=== PATIENT | male | born 1930 | race African-American/Black ===

== ENCOUNTER 2017-11-17 18:45 | Emergency (ER) | payer MEDICARE ==
[2017-11-17 19:48] LABS: #Eosinphils 0.2 thou/uL (0.0-0.7); #Lymphocytes 1.6 thou/uL (1.20-3.40); #Monocytes 0.5 thou/uL (0.11-0.59); #Neutrophils 1.8 thou/uL (1.40-6.50); %Basophils 0.7 % (0.0-1.0); %Lymphocytes 39.3 % (21.0-51.0); %Monocytes 11.6 % (0.0-10.0); %Neutrophils 43.3 % (42.0-75.0); Hemoglobin 10.8 g/dL (14.0-18.0); Mean Corpuscular HGB CONC 32.6 g/dL (32.0-36.0); Mean Corpuscular Hemoglobin 29.7 pg (27.0-31.0); Mean Corpuscular Volume 91.1 fl (80.0-94.0); Mean Platelet Volume 7.1 fL (7.4-10.4); Platelet Count 254 thou/uL (130-400); RBC Distribution Width 12.7 % (11.5-14.5); Red Blood Cell (RBC) Count 3.64 mill/uL (4.70-6.10); White Blood Cell (WBC) Count 4.1 thou/uL (4.8-10.8)
[2017-11-17 20:11] LABS: ALT (SGPT) 7 U/L (8-55); AST (SGOT) 14 U/L (5-34); Alkaline Phosphatase 47 U/L (40-150); Anion Gap 13 mmol/L (10-20); BUN (Urea Nitrogen) 19 mg/dL (8.4-25.7); Bilirubin, Total 0.3 mg/dL (0.2-1.2); Calc. Creatinine Clearance 0 mL/min (70-130); Carbon Dioxide 25 mmol/L (23-31); Chloride 104 mmol/L (98-107); Estimated GFR-MDRD 45; Globulin 3.3 g/dL (2.4-3.5); Glucose 361 mg/dL (83-110); Potassium 4.7 mmol/L (3.5-5.1); Protein, Total 7.3 g/dL (5.8-8.1); Sodium 137 mmol/L (136-145)
[2017-11-17 21:55] LABS: Bilirubin Negative (Negative); Blood, Urine Negative (Negative); Clarity CLEAR (Clear); Glucose, Urine (Dipstick) >=1000 mg/dL (Negative); Leukocyte Negative (Negative); Nitrite Negative (Negative); Protein, Urine (Dipstick) Negative (Neg-Trace); Specific Gravity, Urine 1.024 (1.002-1.036); Urobilinogen 0.2 mg/dL (0.2-1.0); pH, Urine 5.5 (5.0-9.0)
== END 2017-11-17 22:24 | disposition home or self-care (01) ==
LOC: ERS 18:45
DX: E11.65 Type 2 diabetes mellitus with hyperglycemia (principal); E78.5 Hyperlipidemia, unspecified; I10 Essential (primary) hypertension; Z79.4 Long term (current) use of insulin; Z79.899 Other long term (current) drug therapy
CPT/HCPCS: 36415; 36416; 80053; 81003; 85025; 96360

== ENCOUNTER 2018-09-16 05:05 | Inpatient (IN) | payer MEDICARE ==
[2018-09-16 05:38] LABS: #Eosinphils 0.2 thou/uL (0.0-0.7); #Lymphocytes 1.8 thou/uL (1.20-3.40); #Monocytes 0.6 thou/uL (0.11-0.59); %Basophils 0.1 % (0.0-1.0); %Eosinophils 3.8 % (0.0-10.0); %Lymphocytes 31.8 % (21.0-51.0); %Neutrophils 53.3 % (42.0-75.0); Hemoglobin 9.6 g/dL (14.0-18.0); Mean Corpuscular HGB CONC 32.1 g/dL (32.0-36.0); Mean Corpuscular Hemoglobin 27.1 pg (27.0-31.0); Mean Corpuscular Volume 84.6 fL (78.0-98.0); Mean Platelet Volume 6.3 fL (7.4-10.4); Platelet Count 403 thou/uL (130-400); RBC Distribution Width 12.8 % (11.5-14.5); Red Blood Cell (RBC) Count 3.54 mill/uL (4.70-6.10); White Blood Cell (WBC) Count 5.7 thou/uL (4.8-10.8)
[2018-09-16 05:41] LABS: INR-International Normal Ratio 1.1; Prothrombin Time 13.8 SEC (12.0-14.7)
[2018-09-16 05:42] LABS: PTT 40.5 SEC (22.9-36.1)
[2018-09-16] MEDS ORDERED: Aspirin 300 MG Suppository ONE (05:48)
[2018-09-16 06:02] LABS: ALT (SGPT) Less than 7 U/L (8-55); AST (SGOT) 15 U/L (5-34); Albumin 3.8 g/dL (3.4-4.8); Alkaline Phosphatase 45 U/L (40-150); Anion Gap 12 mmol/L (10-20); BUN (Urea Nitrogen) 16 mg/dL (8.4-25.7); Bilirubin, Total 0.4 mg/dL (0.2-1.2); CK (CPK) 110 U/L (30-200); Calc. Creatinine Clearance 0 mL/min (70-130); Calcium 8.8 mg/dL (7.8-10.44); Carbon Dioxide 24 mmol/L (23-31); Chloride 93 mmol/L (98-107); Estimated GFR-MDRD 55; Globulin 2.8 g/dL (2.4-3.5); Glucose 138 mg/dL (83-110); Lipase 14 U/L (8-78); Magnesium 1.7 mg/dL (1.6-2.6); Potassium 4.1 mmol/L (3.5-5.1); Protein, Total 6.6 g/dL (5.8-8.1); Sodium 125 mmol/L (136-145)
[2018-09-16 06:06] LABS: Troponin I Less than 0.010 ng/mL (< 0.028)
--- NOTE | 2018-09-16 08:11 | CT ---
PRELIMINARY REPORT/[facility]/EMERGENTY AFTER-HOURS PROCEDURE Addendum created by Blake House MD on 09/16/2018 5:35 AM Central Time ([place] & [place]) The above was read and discussed at approximately 5:35 AM CDT on09/16/2018 with the attending physician , TOSHIA Mckenzie. Initial Report created on 09/16/2018 5:31 AM Central Time ([place] & [place]) CT Head Without Intravenous Contrast EXAM DATE/TIME: 09/16/2018 5:24 AM CLINICAL HISTORY: 87 years old, male; Signs and symptoms; Altered mental status/memory loss and visual disturbance and weakness, facial; Patient HX: AMS TECHNIQUE: Axial computed tomography images of the head/brain without intravenous contrast. COMPARISON: No relevant prior studies available. FINDINGS: Brain: -hypodensity is seen in the periventricular cerebral white matter. This change is nonspecific but is most likely secondary to chronic ischemia within microvascular distributions. There are no oth er intra or extra-axial masses, lesions or collections. The santiago white matter distinction is maintain ed throughout the brain. There is no radiographic evidence of intracranial hemorrhage. Encephalomalac ia right cerebellum Ventricles: The ventricles are enlarged on the basis of mild diffuse cerebral volume loss. Bones/joints: Normal. No acute fracture. Sinuses: Normal as visualized. No acute sinusitis. Mastoid air cells: Normal as visualized. No mastoid effusion. Soft tissues: Normal. IMPRESSION: No radiographic evidence of acute intracranial pathology. Thank you for allowing us to participate in the care of your patient. Dictated and Authenticated by: Blake House MD 09/16/2018 5:31 AM Central Time ([place] & [place]) FINAL REPORT EMERGENT AFTER HOURS CT OF YARI PAREDESFORMED WITHOUT CONTRAST ENHANCEMENT: HISTORY: Altered mental status, memory loss, and visual disturbance. COMPARISON: A 04/29/11 study. FINDINGS: The ventricular and cisternal systems show some generalized age-appropriate atrophy. There are no si gns of intracerebral hemorrhage or extraaxial fluid collections. The mastoid air cells and visualize d sinuses are clear. IMPRESSION: 1. No acute intracranial abnormalities. Stable sellar/suprasellar mass. 2. This report is in agreement with the temporary report issued by [facility]. POS: [facility]
--- NOTE | 2018-09-16 08:47 | CT ---
PRELIMINARY REPORT/[facility]/EMERGENTY AFTER-HOURS PROCEDURE Addendum created by Blake House MD on 09/16/2018 6:10 AM Central Time ([place] & [place]) The above was read and discussed at approximately 6:10 AM CDT on09/16/2018 with the attending physician , TOSHIA Mckenzie. Initial Report created on 09/16/2018 5:58 AM Central Time ([place] & [place]) CT angiogram of the brain. 09/16/2018 5:32 AM Indication: Signs and symptoms; Visual disturbance and weakness; Patient HX: AMS Technique: Axial images were obtained during the dynamic injection of contrast material. Projected im ages were then obtained and submitted for interpretation. Findings: The axial source images were carefully reviewed and interpreted in conjunction with the projected corbin ges. -right petrous carotid, cavernous carotid, supraclinoid carotid normal Right M1 and M2 segments normal Right A1 and A2 segments mild narrowing of the distal right A1 segment. Narrowing of the proximal A2 segment. Distal A2 segment is occluded. -left petrous and cavernous carotids and supraclinoid carotid normal -Left M1 and M2 segments normal -Left A1 and A2 segments normal Right and left posterior inferior cerebellar arteries Limited characterization of the right posterior inferior cerebellar artery. Left posterior inferior cerebellar artery is patent. Basilar artery normal Superior cerebellar arteries and the left and right P1 and P2 segments are patent. origin of th e right posterior cerebral artery. Impression: Areas of narrowing within the right A1 and A2 segments proximally. Occlusion of the right A2 segment. No appreciable flow within the right callosomarginal. Correlate. Consider correlation with MRI. Thank you for allowing us to participate in the care of your patient. Dictated and Authenticated by: Blake House MD 09/16/2018 5:58 AM Central Time ([place] & [place]) FINAL REPORT CT ANGIOGRAM HEAD WITH 3D RENDERING: Emergency after hour exam at 5:35 a.m., 09-16-18. FINDINGS: There is some narrowing of the distal right A1 as well as the proximal A2 segment with occlusion of t he distal A2 segment. No M1 or M2 segment occlusive disease. No evidence for an aneurysm. There is a small caliber left vertebral and a more dominant right vertebral. There is also a large sellar and garrido prasellar mass. This does not appear to be significantly changed from an MRI of 12-18-14. There are s ome low attenuation changes in the right posterior cerebellum and also in the anterior right frontal lobe in a parasagittal location, evidence for old infarct changes. Code QD VRC, the stable sellar and suprasellar mass were not mentioned on the preliminary report. POS: [facility]
--- NOTE | 2018-09-16 08:48 | RAD ---
PORTABLE CHEST 1 VIEW: DATE: 09/16/2018. TIME: 5:00 a.m. HISTORY: Altered mental status. FINDINGS/IMPRESSION: The heart size is enlarged. The aorta is tortuous. The lungs are expanded without lobar consolidati on, pneumothoraces, concha pulmonary edema, or pleural effusions. There are dependent changes in the shoulder joints. POS: [facility]
[2018-09-16 08:49] VITALS: BMI 23.8
[2018-09-16] MEDS ORDERED: Bisacodyl 10 MG SUPP PR PRN (08:55)
[2018-09-16] MEDS ORDERED: Bisacodyl 5 MG TAB PO PRN (08:55)
[2018-09-16] MEDS ORDERED: Artificial Tears 18 DROP/0.9 ML EA EYE PRN (08:55)
[2018-09-16] MEDS ORDERED: HYDROcodone/Acetaminophen 5/325 mg Tablet PO PRN (08:55)
[2018-09-16] MEDS ORDERED: Calcium Carbonate 500 MG ChewTAB PO PRN (08:55)
[2018-09-16] MEDS ORDERED: Loratadine 10 MG TAB PO PRN (08:55)
[2018-09-16] MEDS ORDERED: Sodium Chloride 0.65% Nasal 44 ML BOT EA NARE PRN (08:55)
[2018-09-16] MEDS ORDERED: Diabetic Tussin 200 MG/10 ML UDCUP PO PRN (08:55)
[2018-09-16] MEDS ORDERED: Dextrose 5% in Water 1,000 ML IV PRN (08:55)
[2018-09-16] MEDS ORDERED: Ondansetron ODT 4 MG TAB PO PRN (08:55)
[2018-09-16] MEDS ORDERED: hydrALAZINE 20 MG/ML VIAL SLOW IVP PRN (08:55)
[2018-09-16] MEDS ORDERED: Senokot S 8.6-50 MG TAB PO PRN (08:55)
[2018-09-16] MEDS ORDERED: Ondansetron PF 4 MG/2 ML Vial IVP PRN (08:55)
[2018-09-16] MEDS ORDERED: Eucerin (Mineral Oil/Petrolatum,White) 30 gm Jar TOP PRN (08:55)
[2018-09-16] MEDS ORDERED: Dextrose 50% Abboject 50 ML SYRINGE SLOW IVP PRN (08:55)
[2018-09-16] MEDS ORDERED: Zolpidem Tartrate 5 MG TAB PO PRN (08:55)
[2018-09-16] MEDS ORDERED: HumaLOG 300 UNITS/3 ML VIAL SC PRN ×2 (08:55)
[2018-09-16] MEDS ORDERED: Acetaminophen 325 MG TAB PO PRN (08:55)
[2018-09-16] MEDS ORDERED: Loperamide HCl 2 MG CAP PO PRN (08:55)
[2018-09-16] MEDS ORDERED: Famotidine 20 MG TAB PO SCH (09:00)
[2018-09-16 09:04] LABS: Troponin I 0.014 ng/mL (< 0.028)
[2018-09-16] MEDS ORDERED: ISOVUE-370 76%-LOCM 1 ML ONE (09:58)
[2018-09-16] MEDS: Sodium Chloride 0.9% 1,000 ML IV SCH (10:08)
[2018-09-16] MEDS: Enoxaparin Sodium 40 MG/0.4 ML SYRINGE SC SCH (10:08)
--- NOTE | 2018-09-16 10:30 | HP ---
PRIMARY CARE PHYSICIAN: Dr. Marv Bliss. REASON FOR ADMISSION: Acute altered mental status, rule out CVA. HISTORY OF PRESENT ILLNESS: An 87-year-old -Bur[place] male who has underlying history of hyper tension, dyslipidemia, diabetes type 2, chronic kidney disease stage 3, as well as Alzheimer's type o f dementia who was brought to emergency room by paramedics for altered mental status. The patient is not able to provide any history because he has advanced dementia. His is present who witnessed entire episode who gives a history. The patient was last seen normal before going to bed. At that time, he was up to his baseline level. This morning, around 5:00 a.m. the patient woke up. At that time, he was more weak. The patient's made him to sit in bedside commode, but after that when he was trying to stand, patient collaps ed and patient had up rolling of eyeballs. He did not have any generalized tonic clonic seizure, but he was more incoherent and he was very weak. It was unclear whether he had any motor weakness on on e or other side, but patient was not responsive enough and that is why patient's was scared and she called 911 and patient was brought to the emergency room for evaluation. In the emergency room, stroke alert was done and the patient had CT angiography, brain which showed a reas of narrowing within the right A1 and A2 segment proximally as well as occlusion of right A2 segm ent. The patient does have history of large sellar and suprasellar mass which was also seen on the C T angiogram of head. CT brain was negative for any acute process. Routine blood test was unremarkab le. In the emergency room, patient was given aspirin, IV fluid and subsequently the patient was admitted to stroke floor. REVIEW OF SYSTEMS: All review of systems tried to review with the patient, but unable to review at t his point and not reliable because of his advanced dementia. Patient follows simple commands, but he is not consistently cooperative with the assessment as well as history. PAST MEDICAL HISTORY: Hypertension, diabetes type 2, benign pituitary tumor followed by scott Martinez yslipidemia, Alzheimer dementia, chronic kidney disease stage 3, history of cerebral thrombosis with a stroke several years ago in the past without any residual deficit. PAST SURGICAL HISTORY: Hemorrhoidectomy; cataract surgery, bilateral; benign tumor removed from righ t second finger. PAST PSYCHIATRIC HISTORY: Anxiety and depression. ALLERGIES: No known drug allergies. CURRENT HOME MEDICATIONS: Glipizide 10 mg p.o. daily, Toujeo SoloStar 12 units subq daily, aspirin 8 1 mg p.o. daily, Flomax 0.4 mg p.o. daily, lisinopril 10 mg p.o. daily, Zocor 40 mg p.o. at bedtime, lisinopril 10 mg daily, Lyrica 50 mg twice daily, Aricept 5 mg p.o. at bedtime, Namenda 5 mg p.o. dm ly at bedtime, Seroquel 100 mg p.o. at bedtime. FAMILY HISTORY: Father had diabetes. No strong family history of coronary artery disease, stroke or cancer. SOCIAL HISTORY: Patient is and lives at home. His is accompanied by him. He does not have any tobacco, alcohol or illicit drug abuse. He is mostly bed bound. EMERGENCY ROOM COURSE: Patient is given aspirin and IV fluid. PHYSICAL EXAMINATION: VITAL SIGNS: On arrival, blood pressure 166/93, pulse 85, respiratory rate 20, saturation 100% on ro om air, temperature 98.6, weight 67.8 kilograms. GENERAL: The patient is currently alert, awake. Follows simple commands, hypertensive, no obvious a cute distress. HEAD: Normocephalic, atraumatic. EYES: Pupils round, reactive to light. No nystagmus noted. ENT: Oropharynx within normal limits. Moist mucous membranes. No oral lesion, no pharyngeal erythe ma, no exudate. NECK: Supple, no JVD, no thyromegaly, no carotid bruit. LUNGS: Clear to auscultation without any rhonchi or rales. CARDIAC: S1, S2 appears regular. No murmur, no gallop, no rub. ABDOMEN: Soft, bowel sounds present, nontender, nondistended. No organomegaly, no mass, no suprapub ic tenderness. EXTREMITIES: Upper extremity: Passive movements of all joints are normal. Lower extremity: Passiv e movements of all joints are normal. SKIN: No skin rash. HEMATOLOGICAL: No lymphadenopathy. MUSCULOSKELETAL: Unremarkable, no CVA tenderness. PSYCHIATRIC: Normal affect. NEUROLOGIC: When I saw this patient, at that time he was able to move all his four limbs, though his response was not completely consistent. He has dementia and that is why it is very difficult to per form neurological examination, but I could not elicit any facial asymmetry. His speech is baseline a nd he does not have any gross motor or sensory deficit on examination. LABORATORY AND IMAGING: EKG showing first degree AV block, nonspecific ST-T changes, prolonged QT in terval. A CT angiography showed areas of narrowing within the right A1 and A2 segment proximally and occlusion of right A2 segment distally. CT brain does not show any acute intracranial process. Namrata st x-ray normal without any consolidation. CBC: WBC 5.7, hemoglobin 9.6, platelet 403. INR 1.1. B MP: Sodium 125, potassium 4.1, chloride 93, carbon dioxide 24, BUN 16, creatinine 1.46, glucose 138, calcium 8.8. LFT: AST 15, ALT less than 7, alkaline phosphatase 45, albumin 3.8, lipase 14. Everetts ia level 28. CK 110, CK-MB 1.0, troponin I less than 0.010. ASSESSMENT AND PLAN/IMPRESSION: 1. Acute altered mental status, rule out cerebrovascular accident. In the emergency room, the patie nt had some weakness and gaze palsy, but on my examination, everything is back to baseline. His CT b rain is negative for any acute process and CT angiography, brain showing vascular narrowing. Patient has underlying several risk factors for stroke including hypertension, dyslipidemia, diabetes, and a ge. At this point, the patient will require admission to stroke floor. Entire stroke team including PT, OT, Speech will be consulted. Neurology will be consulted. We will continue the aspirin 325 mg p.o. daily, Lipitor 40 mg p.o. at bedtime, lisinopril 10 mg p.o. daily. We will monitor neurologica lly. We will obtain MRI brain, carotid Doppler and echocardiography as a part of workup and will namrata ck lipid profile, homocysteine and RPR titer tomorrow morning. We will closely monitor on neurologic floor. 2. Diabetes type 2. We will start insulin as per sliding scale protocol. Diabetic diet will be giv en when patient is approved by speech. Depending upon his blood sugar, we will decide whether we can start back his glipizide 10 mg daily. 3. Hyponatremia. The patient has very poor p.o. intake at this point, suspecting from nutritional d eficiency is the reason for hyponatremia. We will give him IV fluid with NS at 75 mL per hour and wi ll repeat BMP tomorrow. We will check TSH and random cortisol level as a part of workup as well as u rine sodium and urine creatinine as a part of workup. 4. Hypertension, currently well controlled. Continue lisinopril 10 mg p.o. daily. 5. Dyslipidemia. Check lipid profile and continue Lipitor 40 mg p.o. at bedtime. 6. Alzheimer dementia. Continue Aricept 5 mg daily and Namenda 5 mg p.o. at bedtime. 7. Anxiety and depression. Continue Seroquel 100 mg p.o. at bedtime. 8. Chronic kidney disease stage 3. Monitor renal function and repeat BMP tomorrow. 9. Benign enlargement of prostate. Continue Flomax 0.4 mg p.o. daily. 10. Deep venous thrombosis prophylaxis. Lovenox 40 mg subcu daily. 11. Gastrointestinal prophylaxis, Pepcid 20 mg p.o. b.i.d. 12. Code status: The patient is DO NOT RESUSCITATE. I discussed with the patient's and confir med DO NOT RESUSCITATE status. Plan of care discussed with the patient's family member at bedside. 13. Pituitary tumor benign which is already there for several years and followed by neurosurgeon as an outpatient basis.
[2018-09-16 12:56] LABS: Troponin I 0.012 ng/mL (< 0.028)
[2018-09-16 13:39] LABS: Osmolality, Urine 402 mOsm/kg (300-900)
--- NOTE | 2018-09-16 13:49 | ULT ---
BILATERAL CAROTID DUPLEX ULTRASOUND: HISTORY: Altered mental status, memory loss, and visual disturbances and weakness, CVA. TECHNIQUE: Sonographic evaluation of the extracranial carotid artery systems was performed bilaterally using gra y scale, color flow, and spectral Doppler imaging. FINDINGS: There is mild intimal wall thickening measuring about 0.2 cm. The peak systolic velocity in the right ICA measures 44 cm/s with an end-diastolic velocity of 15 cm/ s and a systolic ratio of 0.76. The peak systolic velocity in the left ICA measures 52 cm/s with an end-diastolic of 14 cm/s and a sy stolic ratio of 0.70. Flow in both vertebral arteries remains antegrade. IMPRESSION: No evidence of hemodynamically significant stenosis. POS: [facility]
[2018-09-16 13:50] LABS: Sodium, Urine 62 mmol/L (Not Available)
--- NOTE | 2018-09-16 17:38 | MRI ---
MRI BRAIN WITHOUT CONTRAST: Date: 09/16/18 HISTORY: Altered mental status. Memory loss, visual disturbance, and weakness. FINDINGS: Exam is limited due to motion artifact. No restricted diffusion is seen. No evidence of acute infarct, hemorrhage, midline shift, or abnormal extra-axial fluid collections are seen. Ventricular size is appropriate and the basilar cisterns are patent. There is a sellar/suprasellar mass which cannot be satisfactorily evaluated due to motion ar tifact. There is encephalomalacia in the right cerebellar hemisphere. IMPRESSION: 1. No evidence of acute intracranial process. 2. The sellar/suprasellar mass would be better evaluated with dedicated MRI of the brain with and wi thout IV contrast using the pituitary protocol. POS: [facility]
--- NOTE | 2018-09-16 18:41 | CON ---
DATE OF CONSULTATION: 09/16/2018 CONSULTING PHYSICIAN: Hospitalist Service. IMPRESSION: The patient had what sounded to be intermittent unconscious episode with questionable le ft-sided weakness. His exam at this point is unremarkable for any focal deficits. His workup thus f ar has been negative including a carotid ultrasound and a CT angiogram of the head and neck. His ini tial vital signs in the emergency room were in normal range. PLAN: 1. Orthostatic vital signs. 2. Review MRI of the brain. HISTORY OF PRESENT ILLNESS: Mr. Connelly is an 87-year-old gentleman with a past history of dementia. He is also fairly physically debilitated and unable to walk. His was helping him up from the bed to take him to the bathroom when she reports that "he was in and out of it." EMS was called and they thought that there may be some left-sided weakness. He was transported to the emergency room fo r evaluation. Initial CT scan of the brain does not show any acute changes, but there is some chroni c ischemia in the right frontal and right cerebellar regions. He has not had any further episodes of alteration of consciousness. He has no past history of seizures. His son reports that his level of dementia is fairly severe, although he does recognize family. PAST MEDICAL HISTORY: Otherwise, unremarkable. FAMILY HISTORY: Noncontributory. SOCIAL HISTORY: No tobacco or alcohol. ALLERGIES: None. REVIEW OF SYSTEMS: Limited due to his dementia. PHYSICAL EXAMINATION: GENERAL: Blood pressure 164/83, pulse 67, respirations 16, temperature 98.7. HEENT: Pupils are equal. Conjunctivae clear. Oropharynx clear. NECK: Supple. EXTREMITIES: No cyanosis. NEUROLOGIC: He was alert and cooperative. He follows commands reasonably well. His speech was flue nt and clear. Facial asymmetry was noted. He had equal field artillery targeting technician strength. There was no fix or drift pr esent. He could sit at the bedside without assistance. He could not stand except with a max assist. No abnormal movements were seen. LABORATORY STUDIES: White blood cell count 5.7, hemoglobin 9.6. Coags were in normal range. Chemis try panel showed a serum osmolarity of 265. Prolactin of 18.61, cortisol 9.8 and TSH of 0.6, some im aging was reviewed. SUMMARY: An 87-year-old gentleman with dementia who is essentially bedfast who had alteration of con sciousness when sat up by his . I wonder if he may have orthostatic hypotension that precipitate d his change in mental status. Exam at this point does not reflect any signs of a stroke. A subclin ical seizure would be a consideration, although the history is not strongly supportive of this can pr oceed with recommendations, plan and disposition.
[2018-09-16] MEDS ORDERED: Donepezil HCl 5 MG TAB PO SCH (21:00)
[2018-09-16] MEDS ORDERED: Prevnar 13-Val Conj/PF 0.5 ML SYRINGE IM ONE (21:00)
[2018-09-16] MEDS ORDERED: Atorvastatin Calcium 40 MG TAB PO SCH (21:00)
[2018-09-16] MEDS: Pregabalin 25 MG CAP PO SCH (21:07)
[2018-09-17] MEDS: Sodium Chloride 0.9% 1,000 ML IV SCH (03:18)
[2018-09-17 04:59] LABS: #Eosinphils 0.2 thou/uL (0.0-0.7); #Lymphocytes 0.8 thou/uL (1.20-3.40); #Monocytes 0.6 thou/uL (0.11-0.59); #Neutrophils 5.3 thou/uL (1.40-6.50); %Basophils 0.1 % (0.0-1.0); %Eosinophils 2.2 % (0.0-10.0); %Lymphocytes 11.6 % (21.0-51.0); %Monocytes 8.9 % (0.0-10.0); %Neutrophils 77.1 % (42.0-75.0); Hemoglobin 9.8 g/dL (14.0-18.0); Mean Corpuscular HGB CONC 33.5 g/dL (32.0-36.0); Mean Corpuscular Hemoglobin 28.4 pg (27.0-31.0); Mean Corpuscular Volume 84.7 fL (78.0-98.0); Mean Platelet Volume 6.4 fL (7.4-10.4); Platelet Count 370 thou/uL (130-400); RBC Distribution Width 12.7 % (11.5-14.5); Red Blood Cell (RBC) Count 3.45 mill/uL (4.70-6.10); White Blood Cell (WBC) Count 6.9 thou/uL (4.8-10.8)
[2018-09-17 05:18] LABS: Anion Gap 10 mmol/L (10-20); BUN (Urea Nitrogen) 14 mg/dL (8.4-25.7); Calc. Creatinine Clearance 41 mL/min (70-130); Carbon Dioxide 25 mmol/L (23-31); Cardiac Risk 1.9 (Less than 4.5); Chloride 97 mmol/L (98-107); Cholesterol 130 mg/dl (< 200 Desired); Estimated GFR-MDRD 66; HDL Cholesterol 70 mg/dL (>60 Neg Risk); LDL Cholesterol, Calculated 53 mg/dL; Potassium 4.5 mmol/L (3.5-5.1); Sodium 127 mmol/L (136-145); Triglycerides 35 mg/dL (Less than 150)
[2018-09-17 05:23] LABS: Glucose 49 mg/dL (83-110)
[2018-09-17 05:38] LABS: Syphilis Antibody Nonreactive (Nonreactive); Syphilis Antibody Index 0.14 S/CO (<1.00 Non-Reactive)
[2018-09-17 08:24] VITALS: BP 143/70; TEMP 98.8
[2018-09-17] MEDS: Enoxaparin Sodium 40 MG/0.4 ML SYRINGE SC SCH (08:30)
[2018-09-17] MEDS: Pregabalin 25 MG CAP PO SCH (08:32)
[2018-09-17] MEDS ORDERED: Tamsulosin HCl 0.4 MG CAP PO SCH (09:00)
[2018-09-17] MEDS ORDERED: Lisinopril 10 MG TAB PO SCH (09:00)
[2018-09-17] MEDS ORDERED: Carvedilol 3.125 MG TAB PO SCH (09:00)
[2018-09-17] MEDS ORDERED: Famotidine 20 MG TAB PO SCH (09:00)
--- NOTE | 2018-09-17 09:21 | PDOC.PN ---
- Subjective Encounter Start Date: 09/17/18 Encounter Start Time: 06:30 -: old records requested/rev Patient seen and examined. No new complaints. No overnight events - Objective Resuscitation Status: Resuscitation Status DNR:Do Not Resuscitate MAR Reviewed: Yes Vital Signs & Weight: Vital Signs (12 hours) Temp Pulse Resp BP BP Pulse Ox 09/17/18 08:29 143/70 H 09/17/18 08:00 98.8 F 74 20 143/70 H 98 09/17/18 04:16 99.2 F 80 19 154/70 H 94 L 09/17/18 00:00 97.3 F L 82 18 147/76 H 95 Weight Weight 151 lb 14.4 oz Result Diagrams: 09/17/18 04:40 09/17/18 04:40 Additional Labs: Accuchecks 09/17/18 09/16/18 09/16/18 06:02 20:28 17:26 POC Glucose 87 106 49 L* 09/16/18 10:57 POC Glucose 94 Radiology Reviewed by me: Yes EKG Reviewed by me: Yes Phys Exam - Physical Examination Constitutional: NAD HEENT: PERRLA, moist MMs, sclera anicteric Neck: no JVD, supple Respiratory: no wheezing, no rales, no rhonchi Cardiovascular: RRR, no significant murmur, no rub Gastrointestinal: soft, non-tender, no distention, positive bowel sounds Musculoskeletal: no edema, pulses present Neurological: moves all 4 limbs Lymphatic: no nodes Psychiatric: normal affect Skin: no rash, normal turgor Dx/Plan (1) Hypoglycemia associated with type 2 diabetes mellitus Code(s): E11.649 - TYPE 2 DIABETES MELLITUS WITH HYPOGLYCEMIA WITHOUT COMA Status: Acute (2) Hyponatremia Code(s): E87.1 - HYPO-OSMOLALITY AND HYPONATREMIA Status: Acute (3) TIA (transient ischemic attack) Code(s): G45.9 - TRANSIENT CEREBRAL ISCHEMIC ATTACK, UNSPECIFIED Status: Acute (4) Transient alteration of awareness Code(s): R40.4 - TRANSIENT ALTERATION OF AWARENESS Status: Acute (5) Alzheimer's dementia Code(s): G30.9 - ALZHEIMER'S DISEASE, UNSPECIFIED; F02.80 - DEMENTIA IN OTH DISEASES CLASSD ELSWHR W/O BEHAVRL DISTURB Status: Chronic (6) Anemia, normocytic normochromic Code(s): D64.9 - ANEMIA, UNSPECIFIED Status: Chronic (7) Anxiety and depression Code(s): F41.9 - ANXIETY DISORDER, UNSPECIFIED; F32.9 - MAJOR DEPRESSIVE DISORDER, SINGLE EPISODE, UNSPECIFIED Status: Chronic (8) BPH (benign prostatic hyperplasia) Code(s): N40.0 - BENIGN PROSTATIC HYPERPLASIA WITHOUT LOWER URINRY TRACT SYMP Status: Chronic (9) 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 Review of Systems - Review of Systems Other: unable to review due to dementia - Medications/Allergies Allergies/Adverse Reactions: Allergies Allergy/AdvReac Type Severity Reaction Status Date / Time No Known Drug Allergies Allergy Verified 09/16/18 08:37 Medications: Current Medications Acetaminophen (Tylenol) 650 mg PO Q4H PRN PRN Reason: Headache/Fever/Mild Pain (1-3) Hydrocodone Bitart/Acetaminophen ([place] 5/325) 1 tab PO Q4H PRN PRN Reason: Moderate Pain (4-6) Artificial Tears (Tears Naturale) 2 drop EA EYE PRN PRN PRN Reason: Dry Eyes Atorvastatin Calcium (Lipitor) 40 mg PO HS [facility] Last Admin: 09/16/18 20:52 Dose: 40 mg Bisacodyl (Dulcolax) 10 mg PO DAILYPRN PRN PRN Reason: Constipation Bisacodyl (Dulcolax) 10 mg MS DAILYPRN PRN PRN Reason: Constipation Calcium Carbonate (Tums) 1,000 mg PO Q4H PRN PRN Reason: Heartburn or Indigestion Carvedilol (Coreg) 3.125 mg PO BID [facility] Last Admin: 09/17/18 08:30 Dose: 3.125 mg Dextrose/Water (Dextrose 50%) 25 gm SLOW IVP PRN PRN PRN Reason: Hypoglycemia Donepezil HCl (Aricept) 5 mg PO HS [facility] Last Admin: 09/16/18 20:52 Dose: Not Given Enoxaparin Sodium (Lovenox) 40 mg SC 0900 [facility] Last Admin: 09/17/18 08:30 Dose: 40 mg Famotidine (Pepcid) 20 mg PO DAILY [facility] Last Admin: 09/17/18 08:30 Dose: 20 mg Glucagon (Glucagon) 1 mg IM PRN PRN PRN Reason: Hypoglycemia Guaifenesin (Robitussin Sf) 200 mg PO Q4H PRN PRN Reason: Cough Hydralazine HCl (Apresoline) 10 mg SLOW IVP Q4H PRN PRN Reason: SBP > 180 and HR < 70 Sodium Chloride (Normal Saline 0.9%) 1,000 mls @ 75 mls/hr IV .[id number] [facility] Last Admin: 09/17/18 03:18 Dose: 1,000 mls Dextrose/Water (D5w) 1,000 mls @ 0 mls/hr IV .Q0M PRN PRN Reason: Hypoglycemia Insulin Human Lispro (Humalog) 0 units SC .MODERATE SLIDING SC PRN PRN Reason: Moderate Correctional Scale Insulin Human Lispro (Humalog) 0 units SC .BEDTIME SLIDING SC PRN PRN Reason: Bedtime Correctional Scale Lisinopril (Zestril) 10 mg PO DAILY [facility] Last Admin: 09/17/18 08:29 Dose: 10 mg Loperamide HCl (Imodium) 2 mg PO PRN PRN PRN Reason: Diarrhea/Loose Stools Loratadine (Claritin) 10 mg PO DAILYPRN PRN PRN Reason: Sinus Symptoms Memantine (Namenda) 5 mg PO HS [facility] Last Admin: 09/16/18 20:52 Dose: 5 mg Mineral Oil/White Petrolatum (Eucerin Cream) 0 gm TOP BIDPRN PRN PRN Reason: Dry Skin Ondansetron HCl (Zofran Odt) 4 mg PO Q6H PRN PRN Reason: Nausea/Vomiting Ondansetron HCl (Zofran) 4 mg IVP Q6H PRN PRN Reason: Nausea/Vomiting Pregabalin (Lyrica) 25 mg PO BID [facility] Last Admin: 09/17/18 08:32 Dose: Not Given Quetiapine Fumarate (Seroquel) 100 mg PO HS [facility] Last Admin: 09/16/18 20:52 Dose: 100 mg Senna/Docusate Sodium (Senokot S) 2 tab PO BID PRN PRN Reason: Constipation Sodium Chloride (Flush - Normal Saline) 10 ml IVF Q12HR [facility] Last Admin: 09/17/18 08:31 Dose: 10 ml Sodium Chloride (Flush - Normal Saline) 10 ml IVF PRN PRN PRN Reason: Saline Flush Sodium Chloride ([place] Nasal [place] 0.65%) 0 ml EA NARE QIDPRN PRN PRN Reason: Nasal Congestion Tamsulosin HCl (Flomax) 0.4 mg PO DAILY [facility] Last Admin: 09/17/18 08:29 Dose: 0.4 mg Zolpidem Tartrate (Ambien) 5 mg PO HSPRN PRN PRN Reason: Insomnia
--- NOTE | 2018-09-17 10:37 | DIS ---
PRIMARY CARE PHYSICIAN: Dr. Marv Bliss DATE OF ADMISSION: 09/16/2018 DATE OF DISCHARGE: 09/17/2018 DISCHARGE DISPOSITION: Home WITH HOME HOSPICE PRIMARY DISCHARGE DIAGNOSES: 1. Transient alteration of his awareness. 2. Transient ischemic attack. 3. Hyponatremia. 4. Hypoglycemia associated with diabetes type 2. SECONDARY DISCHARGE DIAGNOSES: Hypertension, diabetes type 2, chronic systolic and diastolic heart failure, benign enlargement of prostate, anxiety and depression, normocytic normochromic anemia, Alzheimer's dementia. PRIMARY PROCEDURE/OPERATION: None. RADIOLOGICAL INVESTIGATION: CT brain negative for any acute intracranial process. CT angiography showed narrowing of the right A1-A2 segment proximally. MRI brain did not show any acute stroke, but showed stable suprasellar mass. Carotid Doppler negative for any stenosis. Echocardiography showed EF 40-45% and diastolic dysfunction. SIGNIFICANT LABORATORY DATA: WBC 6.9, hemoglobin 9.8, platelets 370. INR 1.1. Sodium 127, potassium 4.5, BUN 14, creatinine 1.26, calcium 9.0, LDL 53, homocysteine 12.91. Prolactin 18.6. Cortisol 9.8. TSH 0.64. Urinalysis is unremarkable. Syphilis negative. DISCHARGE MEDICATIONS: Aspirin 81 mg daily. Aricept mg p.o. at bedtime, lisinopril 10 mg daily, Namenda 5 mg p.o. at bedtime, Seroquel 100 mg p.o. at bedtime, Zocor 40 mg p.o. at bedtime, Coreg 3.125 mg p.o. b.i.d., Toujeo Solostar insulin 6 units subcutaneously daily as needed. CONTRAINDICATIONS: None. CODE STATUS: DNR. INPATIENT CONSULTANTS: Dr. Jamie Marks, neurologist, was consulted while in hospital. TEST RESULTS PENDING ON DISCHARGE: None. ALLERGIES: No known drug allergy. DISCHARGE PLAN: Post hospital, the patient will follow up with primary care physician in 1 week. HOSPITAL COURSE: An 87-year-old male who was admitted by me. Please see my HPI for further details. This patient when he woke up at that time he was feeling weak when he was set to bedside commode and when he was trying to stand up at that time he collapsed and he was having slurred speech and that is why was worried about stroke and paramedics were called and patient was brought to the ER. In the emergency room, stroke alert was done which was essentially unremarkable. CT brain was negative. CT angiography showed A1 A2 segment narrowing. This patient was not a candidate for any intervention because of improvement in his neurological status when he arrived to emergency room. The patient was admitted to stroke floor. We did a neuro check on him. We consulted Neurology. We did a stroke workup and all workup came back negative including MRI brain is also negative. 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 Deng on an outpatient basis. It was also stable. He had hyponatremia that is why we gave him IV fluid that improved somewhat, but this hyponatremia is related with his poor nutritional intake. This patient also had hypoglycemia and that is why we had discussion with about reducing the insulin as well as giving him as needed basis. As he has a low EF systolic and diastolic dysfunction without any congestive heart failure . We added Coreg on his regimen. Rest of medication was continued as per previous. At this point, during this admission, we have ruled out stroke. This patient has advanced dementia and does not want him to go to any kind of facility, rather she wanted to take care of him at home. The patient is seen and examined at bedside today. All new medication prescription given to his pharmacy. Please see my progress note from today for further details. HOME HOSPICE WAS ARRANGED BEFORE DISCHARGE PER FAMILY REQUEST [facility]
[2018-09-17] MEDS ORDERED: Aspirin 325 MG TAB PO SCH (11:30)
[2018-09-18] MEDS ORDERED: Aspirin 325 MG TAB PO SCH (09:00)
--- NOTE | 2018-09-20 23:28 | EKG ---
Test Reason : Blood Pressure : / mmHG Vent. Rate : 081 BPM Atrial Rate : 081 BPM P-R Int : 256 ms QRS Dur : 100 ms QT Int : 452 ms P-R-T Axes : 055 003 079 degrees QTc Int : 525 ms Sinus rhythm with 1st degree A-V block Nonspecific ST and T wave abnormality Prolonged QT Abnormal ECG Confirmed by TOSHIA LUCIA ([id number]), development editor DAREN MALHOTRA ([id number]) on 09/20/2018 11:28:35 PM Referred By: MELVIN LUCIA Confirmed By:TOSHIA LUCIA
== END 2018-09-17 11:57 | disposition hospice, home (50) | DRG 69 ==
LOC: ERS 05:05 → 2SE 06:26
PROVIDERS: ADMIT Internal Medicine; ATTEND Internal Medicine
DX: G45.9 Transient cerebral ischemic attack, unspecified (principal); E87.1 Hypo-osmolality and hyponatremia; I50.40 Unspecified combined systolic (congestive) and diastolic (congestive) heart failure; E11.649 Type 2 diabetes mellitus with hypoglycemia without coma; D64.9 Anemia, unspecified; F41.8 Other specified anxiety disorders; N40.0 Benign prostatic hyperplasia without lower urinary tract symptoms; I11.0 Hypertensive heart disease with heart failure; G30.9 Alzheimer's disease, unspecified; F02.80 Dementia in other diseases classified elsewhere, unspecified severity, without behavioral disturbance, psychotic disturbance, mood disturbance, and anxiety
CPT/HCPCS: 36415; 36416; 70450; 70496; 70551; 71045; 80048; 80053; 80061; 82140; 82533; 82553; 82570; 83090; 83690; 83735; 83930; 83935; 84146; 84300; 84443; 84484; 85025; 85610; 85730; 86780; 90471; 90662; 90670; 93005; 93306; 93880; 96360; G0008; G0009; G8996-GN-CJ; G8997-GN-CJ; J1650